=== PATIENT | female | born 2000 | race Hispanic/Latino ===

== ENCOUNTER 2021-12-27 17:28 | Emergency (ER) | payer OTHER ==
[~2021-12-27] VITALS: Ht 160 cm; Wt 68.0 kg
[2021-12-27] MEDS ORDERED: IBUPROFEN 800 MG TAB PO ONE (18:30)
[2021-12-27] MEDS ORDERED: HYDROCODONE/ACETAMINOPHEN 5/325 MG TAB PO ONE (18:30)
[2021-12-27] MEDS ORDERED: TETANUS/DIPHTHERIA TOXOID [ADULT] 0.5 ML VIAL IM ONE (18:30)
[2021-12-27] MEDS ORDERED: CEPHALEXIN 500 MG CAPSULE PO ONE (18:30)
[2021-12-27] MEDS ORDERED: IBUP-2070 PO (18:32)
[2021-12-27] MEDS ORDERED: CEPH500B PO (18:32)
[2021-12-27 19:04] VITALS: BP 130/80
== END 2021-12-27 19:04 | disposition home or self-care (01) ==
LOC: EDH 17:28
DX: S63.602A Unspecified sprain of left thumb, initial encounter (principal); S60.312A Abrasion of left thumb, initial encounter; Z79.1 Long term (current) use of non-steroidal anti-inflammatories (NSAID); W23.0XXA Caught, crushed, jammed, or pinched between moving objects, initial encounter; X58.XXXA Exposure to other specified factors, initial encounter; Y93.89 Activity, other specified; Y92.89 Other specified places as the place of occurrence of the external cause; Y99.8 Other external cause status
CPT/HCPCS: 29125; 73130; 90471; 90714

== ENCOUNTER 2023-06-09 14:37 | Emergency (ER) | payer OTHER ==
[~2023-06-09] VITALS: Ht 162.6 cm; Wt 89.8 kg
[~2023-06-09 14:37] MED LIST: CEPH500B PO; IBUP-2070 PO
[2023-06-09 16:39] LABS: BASOPHILS # (AUTO) 0.02 K/uL (0.00-0.20); BASOPHILS % (AUTO) 0.2 % (0.0-5.0); EOSINOPHILS # (AUTO) 0.07 K/uL (0.00-0.70); EOSINOPHILS % (AUTO) 0.8 % (0.0-8.0); HEMATOCRIT 37.4 % (36-48); IMMATURE GRANULOCYTE ABSOLUTE 0.03 K/uL (0-1); LYMPHOCYTES # (AUTO) 1.8 K/uL (1.0-4.8); LYMPHOCYTES % (AUTO) 19.3 % (21.0-51.0); MEAN CORPUSCULAR HEMOGLOBIN 29.7 pg (27.0-33.0); MEAN CORPUSCULAR VOLUME 87.6 fL (79-99); MONOCYTES # (AUTO) 0.6 K/uL (0.1-1.0); NEUTROPHILS # (AUTO) 6.6 K/uL (1.8-7.7); NEUTROPHILS % (AUTO) 72.4 % (40.0-77.0); PLATELET COUNT (AUTO) 293 K/uL (130-400); RED BLOOD CELL COUNT(AUTO) 4.27 MIL/uL (4.00-5.50); RED CELL DISTRIBUTION WIDTH 13.1 % (11.0-15.5); WHITE BLOOD COUNT (AUTO) 9.2 K/uL (4.8-10.8)
[2023-06-09 16:48] LABS: CREATININE 0.5 mg/dL (0.5-1.0); POTASSIUM 4.1 mmol/L (3.5-5.1)
[2023-06-09] MEDS ORDERED: ONDA4TAB10 PO (18:42)
[2023-06-09] MEDS: ONDANSETRON ODT 4MG TAB SL ONE (18:50)
[2023-06-09 19:20] VITALS: BP 128/72; PULSE 76; RESP 16; O2SAT 99
== END 2023-06-09 19:21 | disposition home or self-care (01) ==
LOC: EDH 14:37
DX: O26.891 Other specified pregnancy related conditions, first trimester (principal); R10.9 Unspecified abdominal pain; R10.2 Pelvic and perineal pain; Z79.899 Other long term (current) drug therapy; Z3A.01 Less than 8 weeks gestation of pregnancy
CPT/HCPCS: 36415; 76801; 80048; 84703; 85025